=== PATIENT | female | born 1955 | race Caucasian/White ===

== ENCOUNTER 2016-11-26 17:50 | Emergency (ER) | payer MEDICAID ==
[~2016-11-26] VITALS: Ht 152.4 cm; Wt 60.0 kg
[~2016-11-26 17:50] MED LIST: DICL75 PO; ENAL20TA PO; HYDR-2768 PO; NIFE1TAB86 PO
[2016-11-26 17:52] VITALS: BP 129/63; PULSE 78; RESP 16; TEMP 98; O2SAT 95
[2016-11-26] MEDS ORDERED: ONDANSETRON HCL 4 MG/2 ML VIAL IVP ONE (18:15)
[2016-11-26] MEDS ORDERED: SODIUM CHLOR 0.9% 1000 ML INJ 1,000 ML IV SCH (18:15)
[2016-11-26] MEDS ORDERED: MORPHINE SULFATE 4 MG/ML INJ IV PUSH ONE (18:15)
[2016-11-26] MEDS ORDERED: NIFE90TA2 PO (18:21)
[2016-11-26] MEDS ORDERED: PROZ20CA11 PO (18:21)
[2016-11-26] MEDS ORDERED: ENAL20TA PO (18:21)
[2016-11-26] MEDS ORDERED: TRAZ150T75 PO (18:21)
[2016-11-26] MEDS ORDERED: NIFE90TA2 (18:21)
[2016-11-26] MEDS ORDERED: CLON1 PO (18:21)
[2016-11-26] MEDS ORDERED: HYDR25TA5 PO (18:21)
[2016-11-26 18:23] VITALS: BP 118/65; PULSE 65; RESP 17; O2SAT 98
--- NOTE | 2016-11-26 18:36 | PD ---
HPI Chief Complaint: Chest Pain Time Seen by Provider: 18:32 Travel History International Travel<30 days: No Contact w/Intl Traveler<30days: No Traveled to known affect area: No History of Present Illness HPI 61-year-old that presents to the ED for evaluation of right-sided chest discomfort and right upper quadrant pain. Per patient she's had this for the past couple hours. Per patient is becoming more severe. The patient is normal like and it but does become more severe. Per patient she still has her gallbladder. Per patient she thinks related to this. She denies any nausea or vomiting. Pain is reproducible with touch. Per patient she has no left-sided chest pain. No history of pain like this before. No urinary or bowel movement issues. Pain is 7 out of 10. Radiates to the right back. Denies any rashes. No shortness of breath. Has no taken anything for the pain. Allergy to sulfa. No numbness, tilling, weakness. Nothing makes the pain better. Touch makes it worse. PFSH Past Medical History Arthritis: Yes Asthma: Yes Cardiovascular Problems: Yes Hypertension: Yes Immunizations Current: Yes Influenza Vaccination: Yes Past Surgical History Surgical History: No Previous Surgery Section: Yes Social History Alcohol Use: No Tobacco Use: Yes Substance Use: No Allergies-Medications (Allergen,Severity, Reaction): Coded Allergies: Sulfa (Verified Allergy, Severe, Swelling, 11/26/16) Reported Meds & Prescriptions Reported Meds & Active Scripts Active Diclofenac Sodium DR (Diclofenac Sodium) 75 Mg Tabdr 75 Mg PO BID PRN Cipro (Ciprofloxacin HCl) 500 Mg Tab 500 Mg PO BID 7 Days Reported Klonopin (Clonazepam) 1 Mg Tab 1 Mg PO BID Prozac (Fluoxetine HCl) 20 Mg Cap 20 Mg PO DAILY Trazodone (Trazodone HCl) 150 Mg Tab 150 Mg PO HS Nifedipine ER (Nifedipine) 90 Mg Tab Nifedipine ER (Nifedipine) 90 Mg Tab 60 Mg PO DAILY Hydrochlorothiazide 25 Mg Tab 25 Mg PO DAILY Enalapril (Enalapril Maleate) 20 Mg Tab 20 Mg PO DAILY Review of Systems General / Constitutional: No: Fever, Chills, Weight Gain, Weight Loss, Other Eyes: No: Diploplia, Blurred Vision, Photophobia, Drainage, Redness, Foreign Body Sensation, Pain, Tearing, Blind Spots, Visual changes, Blindness, Other HENT: No: Headaches, Vertigo, Lightheadedness, Sore Throat, Rhinitis, Rhinorrhea, Congestion, Nosebleed, Neck Stiffness, Neck Pain, Masses, Gingival Bleeding, Dental Difficulties, Ear Discharge, Earache, Other Cardiovascular: Positive: Chest Pain or Discomfort, No: Palpitations, Irregular Rhythm, Tachycardia, Diaphoresis, Syncope, Dyspnea on exertion, Varicosities, Edema, Cyanosis, Varicosities, Phlebitis, Claudication, Other Respiratory: No: Cough, Shortness of Breath, Wheezing, Sneezing, Orthopnea, Hemoptysis, Stridor, Night Sweats, Pleuritic Pain, Other Gastrointestinal: Positive: Abdominal Pain, No: Nausea, Vomiting, Diarrhea, Hematemesis, Hematochezia, Constipation, Changes in Bowel Habits, Indigestion, Dysphagia, Loss of Appetite, Other Genitourinary: No: Urgency, Frequency, Dysuria, Nocturia, Hematuria, Decreased Urinary Output, Oliguria, Hesitancy, Dribbling, Incontinence, Pelvic Pain, Flank Pain, Dyspareunia, Discharge, Dysmenorrhea, Menorrhagia, Metorrhagia, Vaginal Bleeding, Other Musculoskeletal: No: Myalgias, Arthralgias, Limited ROM, Weakness, Cramping, Edema, Pain, Atrophy, Other Skin: No Rash, No Itching, No Dryness, No Lumps, No Hives, No Change in Pigmentation, No Change in nails, No Alopecia, No Lesions, No Breast Lumps, No Breast Tenderness, No Breast Swelling, No Other Neurologic: No: Weakness, Dizziness, Syncope, Focal Abnormalities, Coordination Problem, Tremor, Ataxia, Headache, Change in Mentation, Slurred Speech, Paresthesia, Incontinence, Seizures, Sensory Disturbance, Other Psychiatric: No: Anxiety, Depression, Suicidal Ideations, Disorder of Thought, Mood Disorder, Substance Abuse, Homicidal Ideation, Other Endocrine: No: Heat Intolerance, Cold Intolerance, Polyuria, Polydipsia, Other Hematologic/Lymphatic: No: Easy Bruising, Lymph Node Enlargement, Other Physical Exam Narrative GENERAL: SKIN: Warm and dry. HEAD: Atraumatic. Normocephalic. EYES: Pupils equal and round. No scleral icterus. No injection or drainage. ENT: No nasal bleeding or discharge. Mucous membranes pink and moist. NECK: Trachea midline. No JVD. CARDIOVASCULAR: Regular rate and rhythm. No murmurs, S3, S4. RESPIRATORY: No accessory muscle use. Clear to auscultation. Breath sounds equal bilaterally. GASTROINTESTINAL: Abdomen soft, patient has reproducible right upper quadrant pain with Donahue's sign positive., nondistended. Hepatic and splenic margins not palpable. MUSCULOSKELETAL: Extremities without clubbing, cyanosis, or edema. No obvious deformities. Full range of motion of the upper and lower extremities bilaterally. 2+ pulses bilaterally. NEUROLOGICAL: Awake and alert. No obvious cranial nerve deficits. Motor grossly within normal limits. Five out of 5 muscle strength in the arms and legs. Normal speech. PSYCHIATRIC: Appropriate mood and affect; insight and judgment normal. Data Data Last Documented VS Vital Signs Date Time Temp Pulse Resp B/P Pulse Ox O2 Delivery O2 Flow Rate FiO2 11/26/16 18:40 16 11/26/16 18:23 65 118/65 98 Room Air 11/26/16 17:52 98.0 Orders Electrocardiogram (11/26/16 ) Complete Blood Count With Diff (11/26/16 18:15) Comprehensive Metabolic Panel (11/26/16 18:15) Lipase (11/26/16 18:15) Lactic Acid (11/26/16 18:15) Prothrombin Time / Inr (Pt) (11/26/16 18:15) Act Partial Throm Time (Ptt) (11/26/16 18:15) Ua Includes Microscopic (11/26/16 18:15) Us Abdomen Gallbladder (11/26/16 ) Iv Access Insert/Monitor (11/26/16 18:15) Ecg Monitoring (11/26/16 18:15) Oximetry (11/26/16 18:15) Morphine Inj (Morphine Inj) (11/26/16 18:15) Ondansetron Inj (Zofran Inj) (11/26/16 18:15) Sodium Chlor 0.9% 1000 Ml Inj (Ns 1000 M (11/26/16 18:15) Ct Abd/Pel W/O Iv Contrast (11/26/16 19:23) Labs Laboratory Tests Test 11/26/16 11/26/16 11/26/16 18:15 18:20 18:27 Urine Color COLORLESS Urine Turbidity CLEAR Urine pH 6.0 Urine Specific [place] 1.004 Urine Protein NEG mg/dL Urine Glucose (UA) NEG mg/dL Urine Ketones NEG mg/dL Urine Occult Blood NEG Urine Nitrite NEG Urine Bilirubin NEG Urine Urobilinogen LESS THAN 2.0 MG/DL Urine Leukocyte Esterase TRACE Urine RBC 1 /hpf Urine WBC 1 /hpf Urine Squamous Epithelial <1 /hpf Cells Urine Bacteria RARE /hpf Urine Mucus FEW /lpf Microscopic Urinalysis Comment White Blood Count 6.9 TH/MM3 Red Blood Count 4.91 MIL/MM3 Hemoglobin 14.5 GM/DL Hematocrit 43.1 % Mean Corpuscular Volume 87.8 FL Mean Corpuscular Hemoglobin 29.6 PG Mean Corpuscular Hemoglobin 33.8 % Concent Red Cell Distribution Width 13.0 % Platelet Count 163 TH/MM3 Mean Platelet Volume 10.2 FL Neutrophils (%) (Auto) 44.7 % Lymphocytes (%) (Auto) 47.2 % Monocytes (%) (Auto) 6.1 % Eosinophils (%) (Auto) 1.4 % Basophils (%) (Auto) 0.6 % Neutrophils # (Auto) 3.1 TH/MM3 Lymphocytes # (Auto) 3.3 TH/MM3 Monocytes # (Auto) 0.4 TH/MM3 Eosinophils # (Auto) 0.1 TH/MM3 Basophils # (Auto) 0.0 TH/MM3 CBC Comment DIFF FINAL Differential Comment Prothrombin Time 10.9 SEC Prothromb Time International 1.0 RATIO Ratio Activated Partial 25.2 SEC Thromboplast Time Sodium Level 139 MEQ/L Potassium Level 3.4 MEQ/L Chloride Level 102 MEQ/L Carbon Dioxide Level 27.0 MEQ/L Anion Gap 10 MEQ/L Blood Urea Nitrogen 12 MG/DL Creatinine 0.80 MG/DL Estimat Glomerular Filtration 72 ML/MIN Rate Random Glucose 100 MG/DL Calcium Level 9.0 MG/DL Total Bilirubin 0.2 MG/DL Aspartate Amino Transf 16 U/L (AST/SGOT) Alanine Aminotransferase 21 U/L (ALT/SGPT) Alkaline Phosphatase 110 U/L Total Protein 7.4 GM/DL Albumin 3.9 GM/DL Lipase 197 U/L Lactic Acid Level 1.3 mmol/L [facility] Medical Decision Making Medical Screen Exam Complete: Yes Emergency Medical Condition: Yes Medical Record Reviewed: Yes Interpretation(s) Last Impressions Abdomen/Pelvis CT 11/26/161922 Signed Impressions: Service Date/Time: Saturday, November 26, 2016 19:57 - CONCLUSION: 1. Number no calculi or hydronephrosis. 2. Normal appendix Danial Finch MD Gall Bladder Ultrasound 11/26/16 0000 Signed Impressions: Service Date/Time: Saturday, November 26, 2016 18:40 - CONCLUSION: 1. No evidence for cholelithiasis. 2. Mild prominence of the right collecting system could be mild hydronephrosis. Danial Finch MD CBC & BMP Diagram 11/26/16 18:20 UA shows signs of UTI. LFTs and lipase within normal limits. Differential Diagnosis Cholecystitis versus cholelithiasis versus liver injury versus chest pain versus pneumonia Narrative Course 61-year-old female that presents to the ED for evaluation of right upper quadrant abdominal pain. Patient was properly examined and was found to have signs and symptoms consistent appears to be likely gallbladder disease. Labs and imaging ordered. Patient was given IV medications as well as fluids. Labs and imaging showed what appears to be UTI. Ultrasound did not show any sign of gallbladder disease but did show some hydronephrosis that her for CT without contrast was done to rule out any sign of kidney stone or urinary infection. CT was negative for this. Patient was reassured. Patient likely has early pyelonephritis/cystitis. At this time patient will be treated with Cipro and diclofenac sodium. Patient was given for Cipro here today. Follow with PCP. See ED worsening symptoms. Diagnosis Primary Impression: Cystitis Additional Impression: RUQ abdominal pain Patient Instructions: General Instructions Additional Instructions: Take medication as prescribed. Drink plenty of fluids. Follow up with PCP. See ED for any worsening symptoms. Med/Other Pt SpecificInfo: Prescription(s) given Scripts Diclofenac Sodium DR 75 Mg Tabdr75 Mg PO BID PRN (PAIN SCALE 1 TO 10) #20 TAB Prov:Yany Walls MD 11/26/16 Ciprofloxacin (Cipro)500 Mg Aus793 Mg PO BID 7 Days Prov:Yany Walls MD 11/26/16 Disposition: 01 DISCHARGE HOME Condition: Stable [place] Verdugo Nov 26, 2016 18:36
[2016-11-26 18:40] VITALS: RESP 16
[2016-11-26 19:00] LABS: AUTOMATED NEUTROPHIL # 3.1 TH/MM3 (1.8-7.7); BASOPHIL % 0.6 % (0.0-2.0); EOSINOPHIL # 0.1 TH/MM3 (0-0.4); EOSINOPHIL % 1.4 % (0.0-4.0); HEMATOCRIT 43.1 % (35.0-46.0); HEMO FLAGS DIFF FINAL; LYMPH % 47.2 % (9.0-44.0); LYMPHOCYTE # 3.3 TH/MM3 (1.0-4.8); MEAN CELL VOLUME 87.8 FL (80.0-100.0); MEAN CORPUSCULAR HEMOGLOBIN 29.6 PG (27.0-34.0); MEAN CORPUSCULAR HGB CONC 33.8 % (32.0-36.0); MONO % 6.1 % (0.0-8.0); NEUT % 44.7 % (16.0-70.0); PLATELET COUNT 163 TH/MM3 (150-450); RED BLOOD COUNT 4.91 MIL/MM3 (4.00-5.30); WHITE BLOOD COUNT 6.9 TH/MM3 (4.0-11.0)
[2016-11-26 19:10] LABS: APTT (PATIENT) 25.2 SEC (24.3-30.1); PROTHROMBIN TIME - PATIENT 10.9 SEC (9.8-11.6)
[2016-11-26 19:15] LABS: ANION GAP 10 MEQ/L (5-15); AST (GOT) 16 U/L (15-37); BLOOD UREA NITROGEN 12 MG/DL (7-18); CHLORIDE 102 MEQ/L (98-107); GLOMERULAR FILTRATION RATE 72 ML/MIN (>89); POTASSIUM 3.4 MEQ/L (3.5-5.1); SODIUM (NA) 139 MEQ/L (136-145)
[2016-11-26 19:18] LABS: ALKALINE PHOSPHATASE 110 U/L (45-117); ALT (GPT) 21 U/L (10-53); TOTAL BILIRUBIN ADULT 0.2 MG/DL (0.2-1.0)
[2016-11-26 19:18] LABS: BACTERIA, URINE RARE /hpf; BLOOD, URINE NEG (NEG); GLUCOSE,URINE NEG (NEG); KETONE, URINE NEG (NEG); MUCUS URINE FEW /lpf (OCC); NITRITE,URINE NEG (NEG); SQUAMOUS EPITHELIAL CELL URINE <1 /hpf (0-5); URINE COLOR COLORLESS (YELLW/STRAW)
--- NOTE | 2016-11-26 19:20 | RADRPT ---
EXAM DATE/TIME: 11/26/2016 18:40 [facility] COMPARISON: No previous studies available for comparison. INDICATIONS : Right upper quadrant pain. MEDICAL HISTORY : Hypertension. Asthma. Arthritis. SURGICAL HISTORY : section. ENCOUNTER: Initial ACUITY: 1 day PAIN SCORE: 3/10 LOCATION: Right upper quadrant MEASUREMENTS: LIVER: 13.5 cm length COMMON DUCT: 3 mm RIGHT KIDNEY: 11.3 x 5.3 x 5.7 cm FINDINGS: LIVER: Normal echotexture without focal lesion or ductal dilatation. Hepatopedal flow. COMMON DUCT: No intraluminal mass or stone visualized. GALLBLADDER: Contains no stones, demonstrates no wall thickening or pericholecystic fluid. PANCREAS: The visualized portions are within normal limits. RIGHT KIDNEY: No evidence of stone or mass. Mild prominence of the right collecting system. CONCLUSION: 1. No evidence for cholelithiasis. 2. Mild prominence of the right collecting system could be mild hydronephrosis. Danial Finch MD on November 26, 2016 at 19:14 Board Certified Radiologist. This report was verified electronically.
--- NOTE | 2016-11-26 20:15 | RADRPT ---
EXAM DATE/TIME: 11/26/2016 19:57 [facility] COMPARISON: No previous studies available for comparison. INDICATIONS : Right flank pain today. ORAL CONTRAST: No oral contrast ingested. RADIATION DOSE: 5.82 CTDIvol (mGy) MEDICAL HISTORY : Hypertension. SURGICAL HISTORY : None. ENCOUNTER: Initial ACUITY: 1 day PAIN SCALE: 7/10 LOCATION: Right flank TECHNIQUE: Volumetric scanning of the abdomen and pelvis was performed. Using automated exposure control and ad justment of the mA and/or kV according to patient size, radiation dose was kept as low as reasonably achievable to obtain optimal diagnostic quality images. FINDINGS: LOWER LUNGS: Bibasilar scarring. LIVER: Homogeneous density without lesion. There is no dilation of the biliary tree. No calcified gallston es. SPLEEN: Normal size without lesion. PANCREAS: Within normal limits. KIDNEYS: Normal in size and shape. There is no mass, stone, or hydronephrosis. ADRENAL GLANDS: Within normal limits. VASCULAR: There is no aortic aneurysm. BOWEL/MESENTERY: The stomach, small bowel, and colon demonstrate no acute abnormality. There is no free intraperitone al air or fluid. Normal appendix. ABDOMINAL WALL: Within normal limits. RETROPERITONEUM: There is no lymphadenopathy. BLADDER: No wall thickening or mass. REPRODUCTIVE: Within normal limits. INGUINAL: There is no lymphadenopathy or hernia. MUSCULOSKELETAL: Within normal limits for patient age. CONCLUSION: 1. Number no calculi or hydronephrosis. 2. Normal appendix Danial Finch MD on November 26, 2016 at 20:10 Board Certified Radiologist. This report was verified electronically.
[2016-11-26] MEDS ORDERED: DICL75TA PO (20:22)
[2016-11-26] MEDS ORDERED: CIPR-9 PO (20:22)
[2016-11-26] MEDS ORDERED: CIPROFLOXACIN 500 MG TAB PO ONE (20:45)
[2016-11-26 21:15] VITALS: BP 121/73
--- NOTE | 2016-11-27 12:35 | EKG ---
Date Performed: 11/26/2016 Time Performed: 18:13:12 PTAGE: 61 years EKG: Sinus rhythm LOW QRS VOLTAGE IN PRECORDIAL LEADS BORDERLINE ECG NO PREVIOUS TRACING DOCTOR: Jhonatan Freitas Interpretating Date/Time 11/27/2016 12:31:03
== END 2016-11-26 21:31 | disposition home or self-care (01) ==
LOC: NEPE 17:50
DX: N30.90 Cystitis, unspecified without hematuria (principal); R10.11 Right upper quadrant pain
CPT/HCPCS: 74176; 76705; 80053; 81001; 83605; 83690; 85025; 85610; 85730; 93005; 96361; 96374; 96375; 99285; J2270; J2405; J7030